=== PATIENT | female | born 1965 | race Caucasian/White ===

== ENCOUNTER → 2016-08-05 | Outpatient (CLI) | payer OTHER ==
[~2016-08-05] MED LIST: ACET-1697 PO; ALBU8.5H2 IH; DIPH1TAB25 PO; EPIN0.3P3 IM; ESTR-2 PO; PRED10TA PO; PRM25T PO
--- OUTSIDE RECORDS SUMMARY | 2016-08-05 15:17 | XMS REPORT | Continuity of Care Document ---
Author Author [facility] Organization [facility] Address Unknown Phone Unavailable Care Team Providers Care Patient Scheduling Coordinator Name Role Phone PAUL MELISSA DO PCP Insurance Providers Payer Name Policy Number Subscriber Name Relationship [facility] [id number] Latosha Reddy 18 Self / Same As Patient Advance Directives Directive Response Recorded Date/Time Advance Directives No 09/30/14 4:18pm Health Care Power of Plug And Mold Finisher No 09/30/14 4:18pm Organ Donor No 09/30/14 4:18pm Resuscitation Status Full Code 09/30/14 4:18pm Problems No known problems or medical conditions. Medications Medication Dose Route Sig Days/Qty Instructions Order Date Discontinued Date Status Me-Testosterone/Estrogen,Ambar 2 Tab PO DAILY 05/24/10 Active Promethazine HCl 1 Tab PO FOUR TIMES DAILY 7 Days 05/24/10 09/30/14 Discontinued Diphenoxylate HCl/Atropine (Lomotil) 1 - 2 Each PO QID PRN 7 Days 05/2409/30/14 Discontinued Epinephrine 0.3 Mg IM NEEDED PRN anaphylaxis 09/30/14 Active Acetaminophen 1,000 Mg PO EVERY 6 HOURS PRN FEVER 10/01/14 Active Albuterol 2 Puff IH FOUR TIMES DAILY 1 Qty 1 PUFFS 10/03/14 Active Prednisone 10 Mg PO DIRECTED 30 Qty 10/03/14 Active Social History Social History Problem Response Recorded Date/Time Alcohol Use Occasionally Uses 09/30/2014 4:20pm Recent Foreign Travel No 09/30/2014 6:07pm Recent Infectious Disease Exposure No 09/30/2014 4:20pm Smoking Status Never a Smoker 09/30/2014 4:19pm Query Response Start Date Stop Date Smoking Status Never a Smoker Hospital Discharge Instructions No hospital discharge instructions. Plan of Care Discharge Date 10/03/14 6:40pm Disposition 30 STILL A PATIENT Instructions/Education Provided Community-acquired Pneumonia (DC) Community-acquired Pneumonia (GEN) Prescriptions See Medications Section Additional Instructions/Education MAKE APPOINTMENT NEEDED WITH DR. MELISSA. DR. MELISSA CALLING IN PRESCRIPTIONS TO [facility]. STOP BY OFFICE BY NOON TOMORROW FOR NOTE FOR WORK. Functional Status Query Response Date Recorded Comprehension Ability Understands Concepts October 01, 2014 9:00pm Allergies, Adverse Reactions, Alerts Allergen Type Severity Reaction Status Last Updated peas Allergy Severe ANAPHYLAXIS Active 09/30/14 bee stings Allergy Severe ANAPHYLAXIS Active 09/30/14 Immunizations Name Given Type Date of Pneumonia Vaccine 06/02/01 Historical Vital Signs Acute Vital Signs Vital Response Date/Time Temperature (Fahrenheit) 98.1 degrees F (97.6 - 99.5) Temperature (Calculated Celsius) 36.00546 degrees C (36.4 - 37.5) Temperature Source Temporal Pulse Rate (adult) 73 bpm (60 - 90) Respiratory Rate 20 bpm (12 - 24) O2 Sat by Pulse Oximetry 98 % (88 - 100) Blood Pressure 99/63 mm Hg Pain Pain Intensity 0 Height (Feet) 5 feet Height (Inches) 6.00 inches Height (Calculated Centimeters) 167.000197 cm Weight (Pounds) 174 pounds Weight (Ounces) 7.0 oz Weight (Calculated Grams) 21514.520 gm Weight (Calculated Kilograms) 79.449466 kilograms Calculated BMI 28.08 Results Laboratory Results Test Name Result Units Flags Reference Collection Date/Time Result Date/ Time Comments White Blood Count 11.3 10^3/uL H 4.3-11.0 09/30/2014 5:05pm 09/30/2014 5: 18pm Red Blood Count 4.49 10^6/uL 4.35-5.85 09/30/2014 5:05pm 09/30/2014 5: 18pm Hemoglobin 13.6 G/DL 11.5-16.0 09/30/2014 5:05pm 09/30/2014 5:18pm Hematocrit 41 % 35-52 09/30/2014 5:0509/30/2014 5:18pm Mean Corpuscular Volume 91 FL 80-99 09/30/2014 5:05pm 09/30/2014 5: 18pm Mean Corpuscular Hemoglobin 30 PG 25-34 09/30/2014 5:05pm 09/30/2014 5: 18pm Mean Corpuscular Hemoglobin Concent 33 G/DL 32-36 09/30/2014 5:05pm 08/2014 5:18pm Red Cell Distribution Width 13.5 % 10.0-14.5 09/30/2014 5:05pm 2014 5:18pm Platelet Count 221 10^3/uL 130-400 09/30/2014 5:05pm 09/30/2014 5:18pm Mean Platelet Volume 11.5 FL H 7.4-10.4 09/30/2014 5:05pm 09/30/2014 5: 18pm Neutrophils (%) (Auto) 78 % H 42-75 09/30/2014 5:05pm 09/30/2014 5:18pm Lymphocytes (%) (Auto) 12 % 12-44 09/30/2014 5:05pm 09/30/2014 5:18pm Monocytes (%) (Auto) 9 % 0-12 09/30/2014 5:05pm 09/30/2014 5:18pm Eosinophils (%) (Auto) 1 % 0-10 09/30/2014 5:05pm 09/30/2014 5:18pm Basophils (%) (Auto) 0 % 0-10 09/30/2014 5:05pm 09/30/2014 5:18pm Neutrophils # (Auto) 8.9 X 10^3 H 1.8-7.8 09/30/2014 5:05pm 09/30/2014 5: 18pm Lymphocytes # (Auto) 1.4 X 10^3 1.0-4.0 09/30/2014 5:05pm 09/30/2014 5: 18pm Monocytes # (Auto) 1.0 X 10^3 0.0-1.0 09/30/2014 5:05pm 09/30/2014 5: 18pm Eosinophils # (Auto) 0.1 10^3/uL 0.0-0.3 09/30/2014 5:05pm 09/30/2014 5 :18pm Basophils # (Auto) 0.0 10^3/uL 0.0-0.1 09/30/2014 5:05pm 09/30/2014 5: 18pm Sodium Level 136 MMOL/L 135-145 09/30/2014 5:pm 09/30/2014 5:34pm Potassium Level 3.9 MMOL/L 3.6-5.0 09/30/2014 5:05pm 09/30/2014 5:34pm Chloride Level 107 MMOL/L 98-107 09/30/2014 5:pm 09/30/2014 5:34pm Carbon Dioxide Level 20 MMOL/L L 21-32 09/30/2014 5:05pm 09/30/2014 5: 34pm Blood Urea Nitrogen 10 MG/DL 7-18 09/30/2014 5:pm 09/30/2014 5:34pm Creatinine 0.78 MG/DL 0.60-1.30 09/30/2014 5:05pm 09/30/2014 5:34pm BUN/Creatinine Ratio 13 09/30/2014 5:05pm 09/30/2014 5:34pm Estimat Glomerular Filtration Rate > 60 09/30/2014 5:pm 2014 5:34pm GFR INTERPRETIVE DATA UNITS FOR ESTIMATED GFR (eGFR): mL/min/1.73 M2 REFERENCE RANGE FOR ESTIMATED GFR (eGFR) eGFR NORMAL eGFR >60 MODERATELY DECREASED eGFR 30-59 SEVERLY DECREASED eGFR 15-29 KIDNEY FAILURE <15 (OR DIALYSIS) Glucose Level 123 MG/DL H 70-105 09/30/2014 5:05pm 09/30/2014 5:34pm Calcium Level 8.7 MG/DL 8.5-10.1 09/30/2014 5:05pm 09/30/2014 5:34pm Total Bilirubin 0.6 MG/DL 0.1-1.0 09/30/2014 5:pm 09/30/2014 5:34pm Alkaline Phosphatase 53 U/L 40-136 09/30/2014 5:pm 09/30/2014 5:34pm Aspartate Amino Transf (AST/SGOT) 19 U/L 5-34 09/30/2014 5:05pm 2014 5:34pm Alanine Aminotransferase (ALT/SGPT) 18 U/L 0-55 09/30/2014 5:pm 09/30 5:34pm Total Protein 5.9 G/DL L 6.4-8.2 09/30/2014 5:05pm 09/30/2014 5:34pm Albumin 3.5 G/DL 3.2-4.5 09/30/2014 5:05pm 09/30/2014 5:34pm Procedures No known history of procedures. Encounters Encounter Location Date/Time Discharged Inpatient [facility] 09/30/14 4:03pm
--- NOTE | 2016-08-06 19:16 | Diagnostic Imaging Report ---
INDICATION: Digital mammogram bilateral screening. This study was compared to the prior exam of 07/29/15, 07/10/14 and 05/21/13. At this time, there are no current complaints. The current study was also evaluated with a Computer Aided Detection (CAD) system. FINDINGS: There are scattered fibroglandular densities in both breasts which could obscure a lesion. Overall, there does not appear to have been any significant change when compared to the prior exam. No primary or secondary sign of malignancy is noted. IMPRESSION: There is no radiographic evidence for malignancy. ACR BI-RADS Category 1: Negative. Result letter will be mailed to the patient. Note: At least 10% of breast cancer is not imaged by mammography. Dictated by: Dictated on workstation # [id number]
== END ==
LOC: RAD 15:14
PROVIDERS: ATTEND Obstetrics & Gynecology
DX: Z12.31 Encounter for screening mammogram for malignant neoplasm of breast (principal)
CPT/HCPCS: 77067

== ENCOUNTER 2016-12-06 10:14 | Outpatient (CLI) | payer OTHER ==
[~2016-12-06] VITALS: Ht 167.6 cm; Wt 80.9 kg
[2016-12-06 10:28] VITALS: BP 101/66
[2016-12-10] MEDS ORDERED: HYDR-3820 PO (08:12)
== END 2016-12-06 10:38 | disposition home or self-care (01) ==
LOC: PREOP 10:14
PROVIDERS: ATTEND Surgery
DX: Z11.2 Encounter for screening for other bacterial diseases; K14.9 Disease of tongue, unspecified; Z01.818 Encounter for other preprocedural examination
CPT/HCPCS: 87081

== ENCOUNTER 2016-12-10 06:00 | Day surgery (SDC) | payer OTHER ==
--- NOTE | 2016-12-09 10:10 | History & Physicial ---
History of Present Illness History of Present Illness Reason for visit/HPI To undergo excision of what appears to be a mucous cyst of the tongue on the left side Date of Admission December 10, 2016 Date Seen by Provider: Dec 09, 2016 Time Seen by Provider: 10:08 I consulted on this patient on 12/09/16 10:08 Attending Physician Shawn Ashley MD Admitting Physician Mike Tobar DO Consult Allergies and Home Medications Allergies Coded Allergies: peas (Verified Allergy, Severe, ANAPHYLAXIS, 12/06/16) Uncoded Allergies: bee stings (Allergy, Severe, ANAPHYLAXIS, 09/30/14) Home Medications Epinephrine 0.3 Mg/0.3 Ml Pen.injctr, 0.3 MG IM NEEDED PRN for anaphylaxis, ( Reported) Me-Testosterone/Estrogen,Ambar 1 Tab Tablet, 1 TAB PO DAILY, (Reported) Past Accwfal-Szfxos-Itwxkr Hx Patient Social History Marrital Status: Employed/Student: employed Alcohol Use: Occasionally Uses Smoking Status: Former Smoker Immunizations Up To Date Date of Pneumonia Vaccine: Jun 02, 2001 Date of Influenza Vaccine: Feb 17, 2015 Surgeries HX Surgeries: Yes (BREAST REDUCTION, LAPOROTOMY-OVARIAN CYSTS, EPF RIGHT FOOT) Surgeries: Abdominal, Gallbladder, Hysterectomy Respiratory Hx Respiratory Disorders: No (ASTHMA CHILD) Cardiovascular Hx Cardiovascular Disorders: No Neurological Hx Neurological Disorders: No Reproductive System Hx Reproductive Disorders: No Genitourinary Hx Genitourinary Disorders: No Genitourinary Disorders: Kidney Stones Gastrointestinal Hx Gastrointestinal Disorders: No Musculoskeletal Hx Musculoskeletal Disorders: Yes Musculoskeletal Disorders: Arthritis, Back Injury Endocrine Hx Endocrine Disorders: No HEENT HX ENT Disorders: No Cancer Hx Cancer: No Psychosocial Hx Psychiatric Problems: No Integumentary HX Skin/Integumentary Disorder: No Blood Transfusions Hx Blood Disorders: No Family Medical History Family Hx: Alcoholism 19 FATHER Arthritis 19 FATHER 19 MOTHER Cardiovascular disease 19 MOTHER Not obtainable due to adoption (RECALLS SOME INFORMATION FROM BIOLOGICAL PARENTS ) No Family History of: AIDS Abdominal aortic aneurysm Maxwell's disease Alzheimer's disease Aphasia Asthma Cancer of mouth Constitutional: no symptoms reported EENTM: no symptoms reported Respiratory: no symptoms reported Cardiovascular: no symptoms reported Gastrointestinal: no symptoms reported Genitourinary: no symptoms reported Musculoskeletal: no symptoms reported Skin: no symptoms reported Psychiatric/Neurological: No Symptoms Reported Physical Exam Vital Signs Capillary Refill : General Appearance: No Apparent Distress HEENT: Normal ENT Inspection Neck: Normal Inspection Respiratory: Lungs Clear Cardiovascular: Regular Rate, Rhythm Gastrointestinal: Soft Neurologic/Psychiatric: Alert, Oriented x3 Assessment/Plan Assessment and Plan lady with a 2 cm mucous cyst along the left lateral margin of the tongue. For excision under general anesthetic Problems: Admission Diagnosis mucous cyst of tongue SHAWN ASHLEY MD Dec 09, 2016 10:10 am
[~2016-12-10] VITALS: Ht 167.6 cm; Wt 80.9 kg
--- OUTSIDE RECORDS SUMMARY | 2016-12-10 06:10 | XMS REPORT | Continuity of Care Document ---
Author Author [facility] Organization [facility] Address Unknown Phone Unavailable Allergies Active Description Code Type Severity Reaction Onset Reported/Identified Relationship to Patient Clinical Status Yes No Known Drug Allergies [id number] Drug Allergy Unknown N/ A 05/24/2010 Yes bee stings bee stings Severe ANAPHYLAXIS 09/30/2014 Yes peas [id number] Drug Allergy Severe ANAPHYLAXIS 12/06/2016 Medications Problems Date Dx Coded Attending Type Code Diagnosis Diagnosed By 05/24/2010 Ot 558.9 05/24/2010 Ot 787.03 07/10/2014 Ot 611.72 07/10/2014 Ot V76.12 07/10/2014 Ot 793.80 07/10/2014 Ot V76.12 07/10/2014 Ot 793.89 07/10/2014 Ot V76.12 07/10/2014 JIGNESH DARBY, SVEN Caldera Ot V76.12 07/26/2014 JIGNESH DARBY, SVEN Caldera Ot V76.12 10/01/2014 PAUL MELISSA DO Ot 276.51 10/01/2014 PAUL MELISSA DO Ot 486 10/01/2014 PAUL MELISSA DO Ot 276.51 10/01/2014 PAUL MELISSA DO Ot 486 10/03/2014 PAUL MELISSA DO Ot 276.51 10/03/2014 PAUL MELISSA DO Ot 486 07/22/2015 Ot V76.12 07/22/2015 Ot 793.89 07/22/2015 Ot V76.12 07/22/2015 JIGNESH DARBY, SVEN Caldera Ot V76.12 07/22/2015 SVEN EGAN MD Ot V76.12 07/28/2015 Ot V76.12 07/28/2015 Ot 793.89 07/28/2015 Ot V76.12 07/28/2015 SVEN EGAN MD Ot V76.12 07/28/2015 JIGNESH DARBY, SVEN Caldera Ot V76.12 07/28/2015 DION DARBY, HECTOR Hoang Ot Z01.818 07/28/2015 Ot V76.12 07/28/2015 Ot 793.89 07/28/2015 Ot V76.12 07/28/2015 JIGNESH DARBY, SVEN Caldera Ot V76.12 07/28/2015 JIGNESH DARBY, SVEN Caldera Ot V76.12 07/28/2015 DION DARBY, HECTOR Hoang Ot Z01.818 07/28/2015 DION DARBY, HECTOR Hoang Ot Z01.818 08/18/2015 DION DARBY, HECTOR Hoang Ot Z12.11 ENCOUNTER FOR SCREENING FOR MALIGNANT NE 08/19/2015 DION DARBY, HECTOR Hoang Ot Z12.11 08/19/2015 DION DARBY, HECTOR Hoang Ot Z12.11 08/05/2016 JIGNESH DARBY, SVEN Caldera Ot Z12.31 ENCNTR SCREEN MAMMOGRAM FOR MALIGNANT NE 08/05/2016 JIGNESH DARBY, SVEN Caldera Ot Z12.31 ENCNTR SCREEN MAMMOGRAM FOR MALIGNANT NE 12/07/2016 DION DARBY, HECTOR Hoang Ot K14.9 DISEASE OF TONGUE, UNSPECIFIED 12/07/2016 DION DARBY, HECTOR Hoang Ot Z01.818 ENCOUNTER FOR OTHER PREPROCEDURAL EXAMIN 12/07/2016 DION DARBY, HECTOR Hoang Ot Z11.2 ENCOUNTER FOR SCREENING FOR OTHER BACTER Procedures Results Test Result Range Methicillin resistant Staphylococcus aureus (MRSA) screening culture - 10:30 Methicillin resistant Staphylococcus aureus (MRSA) screening culture NEG NRG Encounters ACCT No. Visit Date/Time Discharge Status Pt. Type Provider Facility Loc./Unit Complaint [id number] 12/06/2016 10:14:00 2016 10:38:00 DIS Outpatient HECTOR ASHLEY MD [facility] PREOP TONGUE LESION [id number] 08/18/2015 06:43:00 2015 09:45:00 DIS Outpatient HECTOR ASHLEY MD [facility] SDC SCREENING [id number] 09/30/2014 16:03:00 2014 18:40:00 DIS Inpatient PAUL MELISSA DO [facility] SURGICAL [id number] 07/10/2014 15:16:00 2014 23:59:59 CLS Outpatient SVEN EGAN MD [facility] RAD [id number] 05/21/2013 15:07:00 2012 23:59:59 CLS Outpatient SVEN EGAN MD [facility] RAD [id number] 02/13/2013 14:31:00 2012 23:59:59 CLS Outpatient [id number] 12/10/2016 08:00:00 PEN Preadmit HECTOR ASHLEY MD [facility] TONGUE LESION [id number] 08/05/2016 15:14:00 ACT Outpatient SVEN EGAN MD [facility] RAD SCREENING [id number] 07/29/2015 15:44:00 ACT Outpatient SVEN EGAN MD [facility] RAD SCREENING [id number] 07/24/2015 13:47:00 ACT Outpatient HECTOR ASHLEY MD [facility] PREOP [id number] 05/18/2012 11:16:00 Document Registration [id number] 05/04/2011 14:26:00 Document Registration [id number] 08/12/2010 15:05:00 Document Registration [id number] 05/24/2010 11:41:00 Document Registration [id number] 07/08/2009 13:45:00 Document Registration [id number] 07/02/2009 15:11:00 Document Registration
[2016-12-10 06:20] VITALS: BP 111/66
[2016-12-10] MEDS ORDERED: ceFAZolin 1,000 MG (ANCEF) VIAL ONE (06:29)
[2016-12-10] MEDS ORDERED: NS (IVPB) 50 ML ONE (06:29)
[2016-12-10] MEDS ORDERED: ONDANSETRON 4 MG/2 ML (SDV) Z0FRAN ONE (07:00)
[2016-12-10] MEDS ORDERED: SEVOFLURANE (ULTANE) 15 ML INHAL SOLN ONE (07:00)
[2016-12-10] MEDS ORDERED: LACTATED RINGERS 1,000 ML IV ONE (07:00)
[2016-12-10] MEDS ORDERED: proPOfol 200 MG/20 ML (DIPRIVAN) VIAL IV ONE (07:00)
[2016-12-10] MEDS ORDERED: LIDOCAINE PF 2% 5 ML (XYLOCAINE) VIAL ONE (07:00)
[2016-12-10] MEDS ORDERED: DEXAMETHASONE PF 10 MG/ML (DECADRON) VIAL ONE (07:00)
[2016-12-10] MEDS ORDERED: fentaNYL INJECTION 100 MCG/2 ML AMP ONE (07:01)
[2016-12-10] MEDS ORDERED: MIDAZOLAM 2 MG/2 ML (VERSED) VIAL ONE (07:01)
[2016-12-10] MEDS ORDERED: LACTATED RINGERS 1,000 ML IV PRN (07:06)
[2016-12-10] MEDS ORDERED: ceFAZolin 1 GM/NS 50 ML IVPB IV ONE ×2 (07:15)
[2016-12-10] MEDS ORDERED: BUP/EPI 0.25% 1:200,000 (MARCAINE) 10 ML VIAL IJ ONE (07:15)
--- NOTE | 2016-12-10 07:40 | Progress Note-Pre Operative ---
Pre-Operative Progress Note H&P Reviewed The H&P was reviewed, patient examined and no changes noted. Date Seen by Provider: Dec 09, 2016 Time Seen by Provider: 07:39 Date H&P Reviewed: Dec 10, 2016 Time H&P Reviewed: 07:40 Pre-Operative Diagnosis: Mucus cyst of tongue HECTOR ASHLEY MD Dec 10, 2016 7:40 am
[2016-12-10] MEDS ORDERED: HYDR-3820 PO (08:12)
--- NOTE | 2016-12-10 08:12 | Operative Report ---
Operative Report Date of Procedure/Surgery Dec 10, 2016 Surgeon (s) HECTOR ASHLEY MD Supervisor [employer] (s): not applicable Post-Operative Diagnosis 2 cm mucous cyst of tongue Procedure Performed excision of mucuos of tongue Description of Procedure Anesthesia Type: General Estimated blood loss (mL): minimal Specimen(s) collected/removed mucous cyst Description of the Procedure Indication for procedure: This lady presented with a symptomatically 2 cm lump along the left lateral aspect of the tongue, having the appearance of a mucous cyst. She was offered excision under general anesthetic. Informed consent was obtained after reviewing the details of the operation and complications of postoperative infection, bleeding and recurrence a gram of Ancef was administered intravenously as prophylaxis against wound infection. Description of procedure: She was placed supine on the operative table and general anesthesia induced using a laryngeal mask airway. Pre-emptive and reduce it was established using quarter percent Marcaine with epinephrine. An elliptical incision about 3 cm long was made and the lump along the lateral aspect of the tongue on the left side, excised. Hemostasis was achieved using cauter and the incision closed using interrupted 4-0 chromic catgut sutures. She tolerated the procedure well, was extubated in the operative room and taken the recovery room in a stable condition Findings of the Procedure see operative report Allergies and Home Medications Allergies Coded Allergies: peas (Verified Allergy, Severe, ANAPHYLAXIS, 12/06/16) Uncoded Allergies: bee stings (Allergy, Severe, ANAPHYLAXIS, 09/30/14) Home Medications Epinephrine 0.3 Mg/0.3 Ml Pen.injctr, 0.3 MG IM NEEDED PRN for anaphylaxis, ( Reported) Me-Testosterone/Estrogen,Ambar 1 Tab Tablet, 1 TAB PO DAILY, (Reported) HECTOR ASHLEY MD Dec 10, 2016 8:12 am
--- NOTE | 2016-12-10 08:13 | Discharge Inst-Simple/Standard ---
Discharge Inst-Standard Discharge Medications New, Converted or Re-Newed RX: RX on Chart Patient Instructions/Follow Up Plan of Care/Instructions/FU: follow-up when necessary Activity as Tolerated: Yes Discharge Diet: No Restrictions HECTOR ASHLEY MD Dec 10, 2016 8:13 am
[2016-12-10] MEDS ORDERED: ONDANSETRON 4 MG/2 ML (SDV) Z0FRAN IVP PRN (08:30)
[2016-12-10] MEDS ORDERED: morphine INJ 10 MG/ML 1ML (SYR OR VIAL) IVP PRN (08:30)
[2016-12-10] MEDS ORDERED: MEPERIDINE (DEMEROL) INJ 50 MG/ML IVP PRN (08:30)
[2016-12-10 09:10] VITALS: BP 98/60
[2016-12-10 09:40] VITALS: BP 100/61
--- NOTE | 2016-12-14 11:44 | Physician Query-Final Dx ---
BUZZ NO 12/14/16 1144: Clinic Account Progress/Dx Physician Query: Please clarify if the tongue lesion was excised from the anterior 2/3 or the posterior 1/3 portion of the tongue. thank you Date of Service Dec 10, 2016 at 06:00 HECTOR ASHLEY MD 12/15/16 1139: Clinic Account Progress/Dx DIAGNOSIS: Diagnosis Posterior third BUZZ NO Dec 14, 2016 11:44 HECTOR ASHLEY MD Dec 15, 2016 11:39
== END 2016-12-10 09:50 | disposition home or self-care (01) ==
LOC: SDC 06:00
PROVIDERS: ATTEND Surgery
DX: K14.8 Other diseases of tongue (principal); Z87.891 Personal history of nicotine dependence

== ENCOUNTER → 2017-08-17 | Outpatient (CLI) | payer OTHER ==
[~2017-08-17] MED LIST changes: +HYDR-3820 PO
--- NOTE | 2017-08-17 19:20 | Diagnostic Imaging Report ---
INDICATION: Routine screening. Comparison is made with prior exam from 08/05/2016 and 07/29/2015. The current study was also evaluated with a Computer Aided Detection (CAD) system. FINDINGS: The parenchymal pattern is stable. Mild density is noted bilaterally. There are benign calcifications bilaterally. No dominant mass or malignant-appearing microcalcifications are seen. The axillae are unremarkable. IMPRESSION: No mammographic features suspicious for malignancy are identified. ACR BI-RADS Category 2: Benign findings. Result letter will be mailed to the patient. Note: At least 10% of breast cancer is not imaged by mammography. Dictated by: Dictated on workstation # [id number]
== END ==
LOC: RAD 15:22
PROVIDERS: ATTEND Obstetrics & Gynecology
DX: Z12.31 Encounter for screening mammogram for malignant neoplasm of breast (principal)
CPT/HCPCS: 77067

== ENCOUNTER → 2018-08-21 | Outpatient (CLI) | payer OTHER ==
--- NOTE | 2018-08-22 18:09 | Diagnostic Imaging Report ---
INDICATION: Routine screening. Comparison is made with prior mammograms from 08/17/2017 and 08/05/2016. 2-D and 3-D bilateral screening mammography was performed with Computer-Aided Detection (CAD) system. FINDINGS: Scattered fibroglandular densities are identified bilaterally. There are benign calcifications in both breasts. No mass or malignant-appearing microcalcifications are seen. The axillae are unremarkable. IMPRESSION: No mammographic features suspicious for malignancy are identified. ACR BI-RADS Category 2: Benign findings. Result letter will be mailed to the patient. Note: At least 10% of breast cancer is not imaged by mammography. Dictated by: Dictated on workstation # [id number]
== END ==
LOC: RAD 15:26
PROVIDERS: ATTEND Obstetrics & Gynecology
DX: Z12.31 Encounter for screening mammogram for malignant neoplasm of breast (principal)
CPT/HCPCS: 77067

== ENCOUNTER → 2019-10-09 | Outpatient (CLI) | payer OTHER ==
[~2019-10-09] MED LIST changes: +ACHYD1T PO; -HYDR-3820 PO
--- NOTE | 2019-10-09 16:55 | Diagnostic Imaging Report ---
INDICATION: Routine screening. COMPARISON: 08/21/2018 and 08/17/2017. TECHNIQUE: 2D and 3D bilateral screening mammography was performed with CAD. FINDINGS: Scattered fibroglandular densities are identified bilaterally. There are scattered benign calcifications in both breasts. No mass or malignant appearing microcalcifications are identified. The axillae are unremarkable. IMPRESSION: No mammographic features suspicious for malignancy are identified. ACR BI-RADS Category 2: Benign findings. Result letter will be mailed to the patient. Note: At least 10% of breast cancer is not imaged by mammography. Dictated by: Dictated on workstation # [id number]
== END ==
LOC: RAD 15:27
PROVIDERS: ATTEND Obstetrics & Gynecology
DX: Z12.31 Encounter for screening mammogram for malignant neoplasm of breast (principal)
CPT/HCPCS: 77063; 77067

== ENCOUNTER → 2020-10-14 | Outpatient (CLI) | payer OTHER ==
--- NOTE | 2020-10-14 21:06 | Diagnostic Imaging Report ---
INDICATION: Routine screening. COMPARISON is made with prior mammograms 10/09/2019 and 08/21/2018. 2-D and 3-D bilateral screening mammography was performed with CAD. Scattered fibroglandular densities are identified bilaterally. There are benign calcifications. No mass or malignant appearing microcalcifications are seen. Axillae are unremarkable. IMPRESSION: BI-RADS Category 2 No mammographic features suspicious for malignancy are identified. ACR BI-RADS Category 2: Benign findings. Result letter will be mailed to the patient. Note: At least 10% of breast cancer is not imaged by mammography. Dictated by: Dictated on workstation # [id number]
== END ==
LOC: RAD 15:45
PROVIDERS: ATTEND Obstetrics & Gynecology
DX: Z12.31 Encounter for screening mammogram for malignant neoplasm of breast (principal)
CPT/HCPCS: 77063; 77067

== ENCOUNTER 2021-09-23 07:59 | Outpatient (RCR) | payer OTHER | END 2021-09-26 | disposition home or self-care (01) | PROVIDERS: ATTEND Orthopaedic Surgery | DX: M79.644 Pain in right finger(s) (principal); Z96.691 Finger-joint replacement of right hand ==

== ENCOUNTER → 2021-10-15 | Outpatient (CLI) | payer OTHER ==
--- NOTE | 2021-10-19 15:46 | Diagnostic Imaging Report ---
INDICATION: Routine screening. Comparison is made with prior mammogram 10/14/2020 and 10/09/2019. 2-D and 3-D bilateral screening mammography was performed with CAD. Scattered fibroglandular densities are identified bilaterally. The parenchymal pattern is stable. No mass or malignant-appearing microcalcifications are seen. There are scattered benign calcifications bilaterally. Axillae are unremarkable. IMPRESSION: No mammographic features suspicious for malignancy are identified. ACR BI-RADS Category 2: Benign findings. Result letter will be mailed to the patient. Note: At least 10% of breast cancer is not imaged by mammography. BI-RADS Category 2 Dictated by: Dictated on workstation # [id number]
== END ==
LOC: RAD 15:26
PROVIDERS: ATTEND Obstetrics & Gynecology
DX: Z12.31 Encounter for screening mammogram for malignant neoplasm of breast (principal)
CPT/HCPCS: 77063; 77067

== ENCOUNTER → 2021-10-27 | Outpatient (RCR) | payer OTHER | END | disposition home or self-care (01) | PROVIDERS: ATTEND Orthopaedic Surgery | DX: Z96.691 Finger-joint replacement of right hand (principal) ==

== ENCOUNTER 2021-11-25 16:09 | Outpatient (RCR) | payer OTHER | END 2021-11-25 16:20 | disposition home or self-care (01) | PROVIDERS: ATTEND Orthopaedic Surgery | DX: M79.644 Pain in right finger(s) (principal); Z96.691 Finger-joint replacement of right hand ==

== ENCOUNTER 2022-02-11 12:52 | Outpatient (CLI) | payer OTHER ==
[~2022-02-11] VITALS: Ht 167.7 cm; Wt 82.3 kg
== END 2022-02-12 12:44 | disposition home or self-care (01) ==
LOC: PREOP 12:52
PROVIDERS: ATTEND Podiatrist Foot & Ankle Surgery
DX: Z01.818 Encounter for other preprocedural examination (principal); M72.2 Plantar fascial fibromatosis

== ENCOUNTER 2022-02-19 06:12 | Day surgery (SDC) | payer OTHER ==
[~2022-02-19] VITALS: Ht 167.7 cm; Wt 82.3 kg
[2022-02-19] VITALS (11 sets, daily range): BP systolic 97–111; BP diastolic 59–74
[2022-02-19] MEDS ORDERED: ceFAZolin INJECTION 1,000 MG VIAL IV ONE (06:30)
[2022-02-19] MEDS ORDERED: LACTATED RINGERS 1,000 ML IV PRN (06:30)
[2022-02-19] MEDS ORDERED: LIDOCAINE PF 2% 5 ML (XYLOCAINE) VIAL ONE (06:58)
[2022-02-19] MEDS ORDERED: ONDANSETRON 4 MG/2 ML (SDV) Z0FRAN ONE (06:58)
[2022-02-19] MEDS ORDERED: proPOfol 200 MG/20 ML (DIPRIVAN) VIAL IV ONE (06:58)
[2022-02-19] MEDS ORDERED: MIDAZOLAM 2 MG/2 ML (VERSED) VIAL ONE (06:59)
[2022-02-19] MEDS ORDERED: fentaNYL INJ 100 MCG/2 ML AMP ONE (06:59)
[2022-02-19] MEDS ORDERED: BUPIVACAINE 0.5% 30 ML (SENSORCAINE) VIAL ONE (07:26)
--- NOTE | 2022-02-19 07:54 | Progress Note-Pre Operative ---
Pre-Operative Progress Note Date of Available H&P: Feb 19, 2022 Date H&P Reviewed: Feb 19, 2022 Time H&P Reviewed: 07:54 Pre-Operative Diagnosis: Plantar Fasciitis, left MARKEL ZAMORA DPM Feb 19, 2022 07:54
--- NOTE | 2022-02-19 08:44 | Anesthesia-General Post-Op ---
General Patient Condition Mental Status/LOC: Same as Preop Cardiovascular: Satisfactory Nausea/Vomiting: Absent Respiratory: Satisfactory Pain: Controlled Complications: Absent Post Op Complications Complications None Follow Up Care/Instructions Patient Instructions None needed. Anesthesia/Patient Condition Patient Condition Patient is doing well, no complaints, stable vital signs, no apparent adverse anesthesia problems. No complications reported per nursing. ENRIQUE ESTEVES CRNA Feb 19, 2022 08:44
[2022-02-19] MEDS ORDERED: HYDROmorphone 2 MG/ML VIAL (DILAUDID) IV ONE (08:45)
[2022-02-19] MEDS ORDERED: PROMETHAZINE INJ 25 MG/ML (PHENERGAN) AMP IVP ONE (08:45)
[2022-02-19] MEDS ORDERED: fentaNYL INJ 100 MCG/2 ML AMP IVP ONE (08:45)
[2022-02-19] MEDS ORDERED: MEPERIDINE (DEMEROL) INJ 50 MG/ML IVP ONE (08:45)
[2022-02-19] MEDS ORDERED: morphine INJ 10 MG/ML 1ML (SYR OR VIAL) IVP ONE (08:45)
[2022-02-19] MEDS ORDERED: ONDANSETRON 4 MG/2 ML (SDV) Z0FRAN IVP PRN (08:45)
--- NOTE | 2022-02-19 08:46 | Progress Note-Post Operative ---
Post-Operative Progess Note Surgeon (s)/Compactor Driver (s) Surgeon MARKEL ZAMORA DPM Compactor Driver: none Pre-Operative Diagnosis Plantar Fasciitis, left Post-Operative Diagnosis same Procedure & Operative Findings Date of Procedure 02/19/22 Procedure Performed/Findings Endoscopic plantar fascial release, left Anesthesia Type General Estimated Blood Loss Estimated blood loss (mL): Minimal Specimens/Packing Specimens Removed none MARKEL ZAMORA DPM Feb 19, 2022 08:46
[2022-02-19] MEDS ORDERED: SEVOFLURANE (ULTANE) 15 ML INHAL SOLN ONE (08:47)
[2022-02-19] MEDS ORDERED: ACHD5005 PO (08:49)
[2022-02-19] MEDS ORDERED: HYDROcodone/APAP 5 MG/325 MG (LORTAB) TAB PO PRN (09:00)
[2022-02-19] MEDS ORDERED: LACTATED RINGERS 1,000 ML IV SCH (09:00)
--- NOTE | 2022-02-19 10:56 | Physical Therapy Progress Note ---
Therapy Progress Note Patient is s/p Plantar Fasciitis, left. Patient has used axillary crutches prior, however, needed new ones issued. PT in to fit for patient. Patient observed independent with crutch use. 1 visit OMID MCCARTHY PT Feb 19, 2022 10:56
--- NOTE | 2022-02-19 15:09 | OPERATIVE REPORT ---
DATE OF SERVICE: 02/19/2022 SURGEON: Mariana Zamora DPM. PREOPERATIVE DIAGNOSIS: Plantar fasciitis, left foot. POSTOPERATIVE DIAGNOSIS: Plantar fasciitis, left foot. PROCEDURE PERFORMED: Endoscopic plantar fascial release, left foot. WOUND CLASS: Clean. ANESTHESIA: General. HEMOSTASIS: Pneumatic thigh tourniquet at 250 mmHg. INDICATION FOR PROCEDURE: This 56-year-old female presents complaining of a painful left heel. Conservative therapy is met with unsatisfactory results and the patient is agreeable to surgical intervention after risks and complications were discussed at length. No guarantees were extended to the patient and she is willing to proceed. DESCRIPTION OF PROCEDURE: The patient was brought back to the operating table and placed in a secure supine position. Appropriate timeout was performed. A pneumatic thigh tourniquet was placed on the left lower extremity over several layers of padding. The left foot was then prepped and draped in a normal sterile manner. The left foot was then elevated, allowed to exsanguinate after which the tourniquet was inflated to 250 mmHg. Attention was then directed to the medial aspect of the left heel, where a 0.5 cm vertical incision was created just anterior to the attachment of the plantar fascia. The incision was deepened in the same plane with blunt dissection. A spatula was then introduced for a separation of the inferior aspect of the plantar fascia from the overlying adipose tissue. Once this was performed, an obturator and cannula were introduced into the medial incision along the inferior aspect of the plantar fascia extending laterally and tenting the lateral skin, where a second incision was created of a 0.5 cm vertical incision. This allowed the obturator and cannula to exit this lateral incision. The cannula was held in place and the obturator was withdrawn. A 3 mm camera was introduced into the lateral portal visualizing the inferior aspect of the plantar fascia. Next, utilizing a hook blade, the medial third of the plantar fascia was released under direct visualization followed by a triangular blade. Good reduction of tension to the medial band of the plantar fascia was noted at this time. The instrumentation was withdrawn from the cannula. The wound was flushed with normal saline after which the cannula was withdrawn from the foot. The wounds were flushed with normal saline and closure was performed with a 4-0 Prolene in a simple interrupted type stitch to the incision sites. Postoperative injection consisted of 17 mL of 0.5% Marcaine injected into the plantar aspect of the left heel at the surgical site. The injection also included 10 mg dexamethasone to the plantar medial aspect of the left heel. Postoperative dressing consisted of Betadine soaked Adaptic, sterile 4 x 4, sterile Kerlix all secured with a Coban wrap. The patient tolerated the anesthesia and procedure well, was transported from the operating room to the recovery area with vital signs stable and vascular status intact to all digits of the left foot. The patient is to be nonweightbearing the first 24 hours followed by partial weightbearing to tolerance, progressing to full weightbearing in a surgical splint shoe. We will see her back in the office in 10 days' period of time or sooner if necessary. Job ID: [id number] DocumentID: [id number] Dictated Date: 02/19/2022 08:55:09 Child Nutrition Manager Date: 02/19/2022 15:08:30 Dictated By: MARIANA ZAMORA DPM
== END 2022-02-19 10:50 | disposition home or self-care (01) ==
LOC: SDC 06:12
PROVIDERS: ATTEND Podiatrist Foot & Ankle Surgery
DX: M72.2 Plantar fascial fibromatosis (principal); M77.32 Calcaneal spur, left foot; M21.42 Flat foot [pes planus] (acquired), left foot; N95.8 Other specified menopausal and perimenopausal disorders
CPT/HCPCS: 87081

== ENCOUNTER → 2022-10-26 | Outpatient (CLI) | payer OTHER ==
[~2022-10-26] MED LIST changes: +ACHD5005 PO
--- NOTE | 2022-10-27 10:33 | Diagnostic Imaging Report ---
INDICATION: Screening. Comparison is made with prior mammogram from 10/15/2021 and 10/14/2020. 2-D and 3-D bilateral screening mammography was performed with CAD. CAD is utilized. The current study was also evaluated with a Computer Aided Detection (CAD) system. Scattered fibroglandular densities are identified bilaterally. The parenchymal pattern is stable. No mass or malignant-appearing microcalcifications are seen. Axillae are unremarkable. IMPRESSION: BI-RADS Category 1 No mammographic features suspicious for malignancy are identified. ACR BI-RADS Category 1: Negative. Result letter will be mailed to the patient. Note: At least 10% of breast cancer is not imaged by mammography. Dictated by: Dictated on workstation # [id number]
== END ==
LOC: RAD 15:21
PROVIDERS: ATTEND Obstetrics & Gynecology
DX: Z12.31 Encounter for screening mammogram for malignant neoplasm of breast (principal)
CPT/HCPCS: 77063; 77067